=== PATIENT | male | born 1980 | race Caucasian/White ===

== ENCOUNTER 2016-10-20 08:22 | Emergency (ER) | payer SELFPAY ==
[~2016-10-20 08:22] MED LIST: CIPR500T89 PO; PERC5TAB6 PO
[2016-10-20] MEDS ORDERED: KETOROLAC 30 MG/ML VIAL (J1885) As Ordered ONE (09:18)
[2016-10-20 09:34] LABS: BASO # 0.2 K/mm3 (0.0-0.2); EOS # 0.2 K/mm3 (0.0-0.50); EOS % 1.3 % (0.0-3.0); LARGE UNSTAINED CELL # 0.2 K/mm3 (0.0-0.4); LARGE UNSTAINED CELL % 1.3 % (0.0-4.0); LYMPH # 2.2 K/mm3 (1.5-4.5); LYMPH % 16.4 % (24.0-44.0); MEAN CORPUSCULAR HEMOGLOBIN 32.6 pg (27.0-33.0); MEAN CORPUSCULAR HGB CONC 33.5 g/dl (32.0-36.5); MEAN CORPUSCULAR VOLUME 97.3 fl (80.0-96.0); MONO # 0.4 K/mm3 (0.0-0.8); MONO % 3.1 % (0.0-5.0); NEUTROPHILS # 9.2 K/mm3 (1.8-7.7); NEUTROPHILS % 75.9 % (36.0-66.0); PLATELET COUNT, AUTOMATED 273 k/mm3 (150-450); RED CELL DISTRIBUTION WIDTH 12.5 % (11.5-14.5); WHITE BLOOD COUNT 12.2 K/mm3 (4.0-10.0)
[2016-10-20 09:55] LABS: ANION GAP 7 MEQ/L (8-16); BLOOD UREA NITROGEN 11 MG/DL (7-18); CARBON DIOXIDE LEVEL 26 MEQ/L (21-32); CHLORIDE LEVEL 108 MEQ/L (98-107); CREATININE FOR GFR 0.65 MG/DL (0.70-1.30); GLOMERULAR FILTRATION RATE > 60.0 (>60); GLUCOSE, FASTING 92 MG/DL (70-105); POTASSIUM SERUM 3.9 MEQ/L (3.5-5.1); SODIUM LEVEL 141 MEQ/L (136-145)
--- NOTE | 2016-10-20 10:38 | REP ---
SCROTAL SONOGRAPHY: HISTORY: Right-sided chest tube. Prior hernia. COMPARISON STUDY: October 12, 2015 FINDINGS: High-resolution bilateral scrotal sonography demonstrates homogeneous testicular parenchyma bilaterally with normal intact Doppler flow to both testes. Doppler resistive indices are 0.52 on the right and 0.55 on the left. There is a 1.9 cm right-sided epididymal cyst again seen. No intratesticular mass lesion is seen on either side. There are a few scattered microcalcifications again seen in the testes. No intratesticular mass is seen. There is no evidence of hydrocele or hernia. Right testis measures 3.7 x 2.2 x 3.3 cm. Left testicular dimensions are 4.1 x 2.0 x 2.5 cm. IMPRESSION: 1.9 cm right-sided epididymal cyst again noted. Otherwise normal bilateral scrotal sonography. Normal Doppler flow to both testes. Signed by Yifan Butt MD 10/20/2016 02:32 P
--- NOTE | 2016-10-20 11:01 | EDDOCDS ---
Physician Documentation [facility] Name: Kameron Haro Age: 36 yrs Sex: Male : 1980 Arrival Date: 10/20/2016 Time: 08:22 Bed I4 / M4 Private MD: Disposition: 10/20/16 10:51 Discharged to Home/Self Care. Impression: Inguinal hernia - RIGHT, REDUCIBLE, Cyst of epididymis - RIGHT. - Condition is Stable. - Discharge Instructions: Inguinal Hernia, Adult. - Prescriptions for [place] 5- 325 mg Oral Tablet - take 1 tablet by ORAL route every 6 hours As needed MDD: 4 tabs; 15 tablet. - Medication Reconciliation, Local Pharmacy Hours form. - Follow up: Emergency Department; When: As needed; Reason: Worsening of conditions. Follow up: Jeremias Gallego MD; When: Call to arrange an appointment; Reason: Wound/Symptom Recheck, Recheck today's complaints, Continuance of care, To establish care. - Problem is new. - Symptoms are unchanged. Historical: - Allergies: no known allergies; - Home Meds: 1. none - PMHx: cysts on testicles; - PSHx: Appendectomy (2014); Inguinal hernia repair 1997; Hydrocele repair 1998; - Social history: Smoking status: Patient uses tobacco products, current every day smoker. No barriers to communication noted, The patient speaks fluent Maltese. - Family history: Not pertinent. - : The pt / caregiver states he / she is not on anticoagulants. Home medication list is obtained from the patient. - Exposure Risk Screening:: None identified. Vital Signs: 10/20 08:53 BP 141 / 87; Pulse 63; Resp 16; Temp 97.4(T); Pulse Ox 97% on R/A; Weight 68.04 kg / dwg 150 lbs; Height 5 ft. 9 in. (175.26 cm); Pain 9/10; 10:55 BP 127 / 70; Pulse 57; Resp 18; Temp 97.9; Pulse Ox 97% ; Pain 9/10; jam1 08:53 Body Mass Index 22.15 (68.04 kg, 175.26 cm) dwg MDM: 09:14 Financial registration complete. lg 09:14 IV Saline Lock ordered. dt4 09:14 ketorolac 30 mg IVP once ordered. dt4 09:16 CBC with Diff Ordered. EDMS 09:16 Basic Metabolic Profile Ordered. EDMS 09:16 CRP Ordered. EDMS 09:16 Urinalysis Ordered. EDMS 09:16 Urine Culture Ordered. EDMS 09:16 US Scrotal Ordered. EDMS 09:16 DUPLEX SCAN LIMITED (DOPPLER)+US Ordered. EDMS 09:19 ED course: PT STATES HX OF RIGHT INGUINAL HERNIA, THAT WAS REPAIRED IN 1998. STATES A dt4 COUPLE YEARS AGO, HAD HIS APPENDIX REMOVED AND WAS TOLD AT THAT TIME THAT HIS HERNIA HAD RECURRED AND WAS SCHEDULED TO HAVE THIS FIXED. STATES HE LOST HIS INSURANCE BEFORE THE SCHEDULED SURGERY AND DID NOT HAVE THE MONEY TO PAY OUT OF POCKET FOR THIS SURGERY SO HE DID NOT HAVE THIS REPAIRED AT THAT TIME. STATES SINCE THAT TIME, HAS HAD RIGHT INGUINAL AND RIGHT TESTICULAR PAIN CHRONICALLY BUT THIS HAS WORSENED OVER THE PAST FEW DAYS. STATES HE CAN BARELY PUT ON HIS SHOES IN THE MORNING DUE TO PAIN. . 09:33 Pelvis, limited US Ordered. EDMS 09:55 [facility] Payment Agreement was scanned into [employer] and attached to record. lg Administered Medications: 09:25 Drug: ketorolac 30 mg [ketorolac 30 mg/mL (1 mL) injection solution (1 mL)] Route: IVP; dsf Site: right forearm; Signatures: Dispatcher [employer] Momit Jn Arora, RN Tenisha Anderson, Jovani Reg Gilda Morris RN RN dsf Parul Lopez, YOHANNES PARod dt4 The chart was reviewed and I authenticate all verbal orders and agree with the evaluation and treatment provided.Corrections: (The following items were deleted from the chart) 09:33 09:16 US PELVIC NON-OB COMPLETE+US ordered. EDMS EDMS Attachments: 09:55 [facility] Payment Agreement lg MTDD
--- NOTE | 2016-10-20 11:01 | EDDOCDS ---
Nurse's Notes [facility] Name: Kameron Haro Age: 36 yrs Sex: Male : 1980 Arrival Date: 10/20/2016 Time: 08:22 Bed I4 / M4 Private MD: Diagnosis: Inguinal hernia-RIGHT, REDUCIBLE;Cyst of epididymis-RIGHT Presentation: 10/20 08:49 Presenting complaint: Patient states: Lower abdominal pain for 4-5 days, constant. [facility] Adult Sepsis Screening: The patient does not have new or worsening altered mentation. Patient's respiratory rate is less than 22. Systolic blood pressure is greater than 100. Patient has a qSOFA score of 0- Negative Sepsis Screen. Suicide/Homicide risk assessment- the patient denies having any suicidal and/or homicidal ideations and does not present with any other emotional, behavioral or mental health complaints. Status: Patient is not a medical service representative or dependent. Transition of care: patient was not received from another setting of care. 08:49 Acuity: JAN Level 3 dw 08:49 Method Of Arrival: Walkin/Carried/Asstd [facility] Triage Assessment: 08:53 General: Appears in no apparent distress. Pain: Pain currently is 9 out of 10 on a pain dwg scale. HIV screening NA for this visit Offered previously. 10:59 GI: Reports none. dsf Historical: - Allergies: no known allergies; - Home Meds: 1. none - PMHx: cysts on testicles; - PSHx: Appendectomy (2014); Inguinal hernia repair 1997; Hydrocele repair 1998; - Social history: Smoking status: Patient uses tobacco products, current every day smoker. No barriers to communication noted, The patient speaks fluent Bruneian. - Family history: Not pertinent. - : The pt / caregiver states he / she is not on anticoagulants. Home medication list is obtained from the patient. - Exposure Risk Screening:: None identified. Screenin:56 Screening information is obtained from the patient. Primary language is Bruneian. Fall jam1 risk: No risks identified. Assistance ADL's: requires no assistance with activities of daily living. Abuse/DV Screen: The patient / caregiver reports he/she is: not in a situation that causes fear, pain or injury. Nutritional screening: No deficits noted. Exposure Risk Screening: None identified. Advance Directives: Currently, there is no health care proxy. There is no active DNR order. There is no living will. There is no Power of [place]. Advance directive information has not previously been placed in an [facility] medical record. Further advance directive information is declined. home support is adequate. Assessment: 09:25 Adult Sepsis Screening: The patient does not have new or worsening altered mentation. dsf Patient's respiratory rate is less than 22. Systolic blood pressure is greater than 100. Patient has a qSOFA score of 0- Negative Sepsis Screen. General: Appears in no apparent distress, Behavior is appropriate for age, cooperative. Pain: Location: right groin Pain currently is 9 out of 10 on a pain scale. Quality of pain is described as stabbing, Pain began 1 year ago. Neurological: Level of Consciousness is awake, alert, Oriented to person, place, time. Cardiovascular: Capillary refill < 3 seconds Heart tones S1 S2 present. Respiratory: Airway is patent Respiratory effort is even, unlabored, Respiratory pattern is regular, symmetrical, Breath sounds are clear bilaterally. GI: Abdomen is flat, Bowel sounds present X 4 quads. Abd is soft and non tender X 4 quads. Derm: Skin is pink, warm & dry. 10:25 General: Appears in no apparent distress, comfortable, Behavior is appropriate for age, dsf cooperative, laughing . Pain: Location: right groin Pain currently is 8 out of 10 on a pain scale. Neurological: Level of Consciousness is awake, alert. Cardiovascular: No deficits noted. Respiratory: No deficits noted. Derm: Skin is pink, warm & dry. 10:58 Adult Sepsis Screening: The patient does not have new or worsening altered mentation. dsf Patient's respiratory rate is less than 22. Systolic blood pressure is greater than 100. Patient has a qSOFA score of 0- Negative Sepsis Screen. General: Appears in no apparent distress, comfortable, Behavior is appropriate for age, cooperative. Pain: Location: right groin Pain currently is 9 out of 10 on a pain scale. Neurological: Level of Consciousness is awake, alert, Oriented to person, place, time. Cardiovascular: No deficits noted. Respiratory: No deficits noted. Derm: Skin is pink, warm & dry. Vital Signs: 08:53 BP 141 / 87; Pulse 63; Resp 16; Temp 97.4(T); Pulse Ox 97% on R/A; Weight 68.04 kg; dwg Height 5 ft. 9 in. (175.26 cm); Pain 9/10; 10:55 BP 127 / 70; Pulse 57; Resp 18; Temp 97.9; Pulse Ox 97% ; Pain 9/10; jam1 08:53 Body Mass Index 22.15 (68.04 kg, 175.26 cm) [facility] Vitals: 08:53 Log In Time: October 20, 2016 at 08:20. [facility] ED Course: 08:25 Patient visited by Bryan Carcamo. mm15 08:25 Patient moved to Waiting mm15 08:48 Patient moved to Triage 1 dw 08:51 Triage Initiated dwg 09:02 Parul Lopez PA-C is PHCP. dt4 09:02 Jose Enrique Cowart MD is Attending Physician. dt4 09:02 Patient visited by Parul Lopez PA-C. dt4 09:16 Patient moved to I4 / M4 srm 09:20 Patient has correct armband on for positive identification. Placed in gown. Bed in low [facility] position. Call light in reach. Side rails up X 1. Adult w/ patient. Door closed. 09:25 Inserted saline lock: 20 gauge in right forearm The patient tolerated the procedure dsf well. 09:30 Patient moved to Ultrasound sm5 09:33 Patient visited by Gilda Topete RN. dsf 09:55 [facility] Payment Agreement was scanned into [employer] and attached to record. lg 10:10 Patient moved to I4 / M4 dsf 10:28 Patient visited by Gilda Topete RN. dsf 10:50 Jeremias Gallego MD is Referral Physician. dt4 10:57 Pt greeted and oriented to ED. Patient advised of names of staff involved in care, jam1 location of call hall, wait times and NPO status. Patient has correct armband on for positive identification. Placed in gown. Bed in low position. Call light in reach. Side rails up X 1. Adult w/ patient. 10:58 Discontinued lock intact, bleeding controlled, pressure dressing applied, No dsf redness/swelling at site. No procedures done that require assistance. 10:59 The patient / caregiver is instructed regarding the plan of care and ED course. dsf Administered Medications: 09:25 Drug: ketorolac 30 mg [ketorolac 30 mg/mL (1 mL) injection solution (1 mL)] Route: IVP; dsf Site: right forearm; Order Results: Lab Order: CBC with Diff; SPEC'M 10/20/16 09:25 Test: WHITE BLOOD COUNT; Value: 12.2; Range: 4.0-10.0; Abnormal: Above high normal; Units: K/mm3; Status: F Test: RED BLOOD COUNT; Value: 5.26; Range: 4.30-6.10; Units: M/mm3; Status: F Test: HEMOGLOBIN; Value: 17.2; Range: 14.0-18.0; Units: g/dl; Status: F Test: HEMATOCRIT; Value: 51.2; Range: 42.0-52.0; Units: %; Status: F Test: MEAN CORPUSCULAR VOLUME; Value: 97.3; Range: 80.0-96.0; Abnormal: Above high normal; Units: fl; Status: F Test: MEAN CORPUSCULAR HEMOGLOBIN; Value: 32.6; Range: 27.0-33.0; Units: pg; Status: F Test: MEAN CORPUSCULAR HGB CONC; Value: 33.5; Range: 32.0-36.5; Units: g/dl; Status: F Test: RED CELL DISTRIBUTION WIDTH; Value: 12.5; Range: 11.5-14.5; Units: %; Status: F Test: PLATELET COUNT, AUTOMATED; Value: 273; Range: 150-450; Units: k/mm3; Status: F Test: NEUTROPHILS %; Value: 75.9; Range: 36.0-66.0; Abnormal: Above high normal; Units: %; Status: F Test: LYMPH %; Value: 16.4; Range: 24.0-44.0; Abnormal: Below low normal; Units: %; Status: F Test: MONO %; Value: 3.1; Range: 0.0-5.0; Units: %; Status: F Test: EOS %; Value: 1.3; Range: 0.0-3.0; Units: %; Status: F Test: BASO %; Value: 2.0; Range: 0.0-1.0; Abnormal: Above high normal; Units: %; Status: F Test: LARGE UNSTAINED CELL %; Value: 1.3; Range: 0.0-4.0; Units: %; Status: F Test: NEUTROPHILS #; Value: 9.2; Range: 1.8-7.7; Abnormal: Above high normal; Units: K/mm3; Status: F Test: LYMPH #; Value: 2.2; Range: 1.5-4.5; Units: K/mm3; Status: F Test: MONO #; Value: 0.4; Range: 0.0-0.8; Units: K/mm3; Status: F Test: EOS #; Value: 0.2; Range: 0.0-0.50; Units: K/mm3; Status: F Test: BASO #; Value: 0.2; Range: 0.0-0.2; Units: K/mm3; Status: F Test: LARGE UNSTAINED CELL #; Value: 0.2; Range: 0.0-0.4; Units: K/mm3; Status: F Lab Order: Basic Metabolic Profile; [facility] 10/20/16 09:25 Test: GLUCOSE, FASTING; Value: 92; Range: 70-105; Units: MG/DL; Status: F Test: BLOOD UREA NITROGEN; Value: 11; Range: 7-18; Units: MG/DL; Status: F Test: CREATININE FOR GFR; Value: 0.65; Range: 0.70-1.30; Abnormal: Below low normal; Units: MG/DL; Status: F Test: GLOMERULAR FILTRATION RATE; Value: > 60.0; Range: >60; Status: F Test: SODIUM LEVEL; Value: 141; Range: 136-145; Units: MEQ/L; Status: F Test: POTASSIUM SERUM; Value: 3.9; Range: 3.5-5.1; Units: MEQ/L; Status: F Test: CHLORIDE LEVEL; Value: 108; Range: 98-107; Abnormal: Above high normal; Units: MEQ/L; Status: F Test: CARBON DIOXIDE LEVEL; Value: 26; Range: 21-32; Units: MEQ/L; Status: F Test: ANION GAP; Value: 7; Range: 8-16; Abnormal: Below low normal; Units: MEQ/L; Status: F Test: CALCIUM LEVEL; Value: 9.0; Range: 8.5-10.1; Units: MG/DL; Status: F Test Note: ; Units are mL/min/1.73 m2 Chronic Kidney Disease Staging per NKF: Stage I & II GFR >=60 Normal to Mildly Decreased Stage III GFR 30-59 Moderately Decreased Stage IV GFR 15-29 Severely Decreased Stage V GFR <15 Very Little GFR Left ESRD GFR <15 on BOOK PACKER Lab Order: CRP; SPEC'M 10/20/16 09:25 Test: C REACTIVE PROTEIN QUANTITATIV; Value: 2.19; Range: 0.00-0.30; Abnormal: Above high normal; Units: MG/DL; Status: F Lab Order: Urinalysis; SPEC'M 10/20/16 09:25 Test: APPEARANCE, URINE; Value: CLEAR; Range: CLEAR; Status: F Test: COLOR, URINE; Value: YELLOW; Range: YELLOW; Status: F Test: PH,URINE; Value: 6.0; Range: 5.0-9.0; Units: UNITS; Status: F Test: SPECIFIC GRAVITY URINE AUTO; Value: 1.015; Range: 1.002-1.035; Status: F Test: PROTEIN, URINE AUTO; Value: NEGATIVE; Range: NEGATIVE; Units: mg/dL; Status: F Test: GLUCOSE, URINE (UA) AUTO; Value: NEGATIVE; Range: NEGATIVE; Units: mg/dL; Status: F Test: KETONE, URINE AUTO; Value: NEGATIVE; Range: NEGATIVE; Units: mg/dL; Status: F Test: UROBILINOGEN, URINE AUTO; Value: 0.2; Range: 0.0-2.0; Units: mg/dL; Status: F Test: BILIRUBIN, URINE AUTO; Value: NEGATIVE; Range: NEGATIVE; Status: F Test: NITRITE, URINE AUTO; Value: NEGATIVE; Range: NEGATIVE; Status: F Test: LEUKOCYTE ESTERASE, URINE AUTO; Value: NEGATIVE; Range: NEGATIVE; Status: F Test: BLOOD, URINE BLOOD; Value: NEGATIVE; Range: NEGATIVE; Status: F Test: WBC, URINE AUTO; Value: 1; Range: 0-3; Units: /HPF; Status: F Test: RBC, URINE AUTO; Value: 1; Range: 0-3; Units: /HPF; Status: F Test: BACTERIA, URINE AUTO; Value: NEGATIVE; Range: NEGATIVE; Status: F Test: SQUAMOUS EPITHELIAL CELL UR AU; Value: 0; Range: 0-6; Units: /HPF; Status: F Test: MUCUS, URINE; Value: SMALL; Range: NEGATIVE; Status: F Test: HYALINE CAST, URINE AUTO; Value: 0; Range: 0-1; Units: /LPF; Status: F Outcome: 10:51 Discharge ordered by Provider. dt4 10:59 Discharge Assessment: Patient awake, alert and oriented x 3. No cognitive and/or dsf functional deficits noted. Patient verbalized understanding of disposition instructions. patient administered narcotics - no. The following High Risk Discharge criteria are identified: None. Discharged to home ambulatory. Condition: good. Discharge instructions given to patient, Instructed on discharge instructions, follow up and referral plans. Demonstrated understanding of instructions, Pt was receptive of discharge instructions/ teaching. Ultrasound Study completed. Property sent home with patient. 11:00 Patient left the ED. dsf Signatures: Jn Hewitt RN RN Suzette Schreiber RN RN srm Amberly Whiting, NAPPER TENDER NAPPER TENDER jam1 Tenisha Vogt, Reg Reg lg Demetra Rahman sm5 Gilda Topete RN RN dsf Bryan Carcamo mm15 Parul Lopez, PA-C PA-C dt4 MTDD
--- NOTE | 2016-10-20 22:06 | REP ---
Limited pelvic ultrasound to evaluate for possible right inguinal hernia 10/20/2016 Indication: Possible right inguinal hernia Comparison : Study read in conjunction with scrotal ultrasound also performed today and 10/20/2016 Technique: Sagittal and transverse images were obtained of the bilateral inguinal regions at rest and with Valsalva maneuver. Small right inguinal hernia was noted containing small amount of peritoneal fat only. This is seen in the right internal ring area. At rest the defect size is 2.3 mm, which increases to 4 mm with Valsalva. This hernia containing peritoneal fat is reducible. The left inguinal region was unremarkable without inguinal hernia noted at rest or upon Valsalva maneuver. Impression: small right inguinal hernia in the internal ring area containing small amount of peritoneal fat only. The hernia defect is 2.3 mm at rest and increases to 4 mm with Valsalva. Herniated peritoneal fat is reducible Signed by Aide Bagley MD 10/20/2016 09:57 P
--- NOTE | 2016-10-22 12:01 | EDDOCDS ---
Physician Documentation [facility] Name: Kameron Haro Age: 36 yrs Sex: Male : 1980 Arrival Date: 10/20/2016 Time: 08:22 Bed I4 / M4 Private MD: Disposition: 10/20/16 10:51 Discharged to Home/Self Care. Impression: Inguinal hernia - RIGHT, REDUCIBLE, Cyst of epididymis - RIGHT. - Condition is Stable. - Discharge Instructions: Inguinal Hernia, Adult. - Prescriptions for [place] 5- 325 mg Oral Tablet - take 1 tablet by ORAL route every 6 hours As needed MDD: 4 tabs; 15 tablet. - Medication Reconciliation, Local Pharmacy Hours form. - Follow up: Emergency Department; When: As needed; Reason: Worsening of conditions. Follow up: Jeremias Gallego MD; When: Call to arrange an appointment; Reason: Wound/Symptom Recheck, Recheck today's complaints, Continuance of care, To establish care. - Problem is new. - Symptoms are unchanged. Historical: - Allergies: no known allergies; - Home Meds: 1. none - PMHx: cysts on testicles; - PSHx: Appendectomy (2014); Inguinal hernia repair 1997; Hydrocele repair 1998; - Social history: Smoking status: Patient uses tobacco products, current every day smoker. No barriers to communication noted, The patient speaks fluent Slovenian. - Family history: Not pertinent. - : The pt / caregiver states he / she is not on anticoagulants. Home medication list is obtained from the patient. - Exposure Risk Screening:: None identified. Vital Signs: 10/20 08:53 BP 141 / 87; Pulse 63; Resp 16; Temp 97.4(T); Pulse Ox 97% on R/A; Weight 68.04 kg / dwg 150 lbs; Height 5 ft. 9 in. (175.26 cm); Pain 9/10; 10:55 BP 127 / 70; Pulse 57; Resp 18; Temp 97.9; Pulse Ox 97% ; Pain 9/10; jam1 08:53 Body Mass Index 22.15 (68.04 kg, 175.26 cm) dwg MDM: 09:14 Financial registration complete. lg 09:14 IV Saline Lock ordered. dt4 09:14 ketorolac 30 mg IVP once ordered. dt4 09:16 CBC with Diff Ordered. EDMS 09:16 Basic Metabolic Profile Ordered. EDMS 09:16 CRP Ordered. EDMS 09:16 Urinalysis Ordered. EDMS 09:16 Urine Culture Ordered. EDMS 09:16 US Scrotal Ordered. EDMS 09:16 DUPLEX SCAN LIMITED (DOPPLER)+US Ordered. EDMS 09:19 ED course: PT STATES HX OF RIGHT INGUINAL HERNIA, THAT WAS REPAIRED IN 1998. STATES A dt4 COUPLE YEARS AGO, HAD HIS APPENDIX REMOVED AND WAS TOLD AT THAT TIME THAT HIS HERNIA HAD RECURRED AND WAS SCHEDULED TO HAVE THIS FIXED. STATES HE LOST HIS INSURANCE BEFORE THE SCHEDULED SURGERY AND DID NOT HAVE THE MONEY TO PAY OUT OF POCKET FOR THIS SURGERY SO HE DID NOT HAVE THIS REPAIRED AT THAT TIME. STATES SINCE THAT TIME, HAS HAD RIGHT INGUINAL AND RIGHT TESTICULAR PAIN CHRONICALLY BUT THIS HAS WORSENED OVER THE PAST FEW DAYS. STATES HE CAN BARELY PUT ON HIS SHOES IN THE MORNING DUE TO PAIN. . 09:33 Pelvis, limited US Ordered. EDMS 09:55 [facility] Payment Agreement was scanned into [employer] and attached to record. lg 12:52 T-Sheet-- Draft Copy was scanned into [employer] and attached to record. gb 12:52 Radiology Report was scanned into [employer] and attached to record. gb Administered Medications: 09:25 Drug: ketorolac 30 mg [ketorolac 30 mg/mL (1 mL) injection solution (1 mL)] Route: IVP; dsf Site: right forearm; Signatures: Dispatcher [employer] Jn Arora RN RN [facility] Angelica Petit, Reg Reg gb Tenisha Vogt, Reg Reg Gilda Morris RN RN dsf Parul Lopez, YOHANNES PARod dt4 The chart was reviewed and I authenticate all verbal orders and agree with the evaluation and treatment provided.Corrections: (The following items were deleted from the chart) 09:33 09:16 US PELVIC NON-OB COMPLETE+US ordered. EDMS EDMS Attachments: 09:55 [facility] Payment Agreement lg 12:52 T-Sheet-- Draft Copy gb Chart Complete MTDD
--- NOTE | 2016-10-22 12:01 | EDDOCDS ---
Nurse's Notes [facility] Name: Kameron Haro Age: 36 yrs Sex: Male : 1980 Arrival Date: 10/20/2016 Time: 08:22 Bed I4 / M4 Private MD: Diagnosis: Inguinal hernia-RIGHT, REDUCIBLE;Cyst of epididymis-RIGHT Presentation: 10/20 08:49 Presenting complaint: Patient states: Lower abdominal pain for 4-5 days, constant. [facility] Adult Sepsis Screening: The patient does not have new or worsening altered mentation. Patient's respiratory rate is less than 22. Systolic blood pressure is greater than 100. Patient has a qSOFA score of 0- Negative Sepsis Screen. Suicide/Homicide risk assessment- the patient denies having any suicidal and/or homicidal ideations and does not present with any other emotional, behavioral or mental health complaints. Status: Patient is not a furniture servicer or dependent. Transition of care: patient was not received from another setting of care. 08:49 Acuity: JAN Level 3 dw 08:49 Method Of Arrival: Walkin/Carried/Asstd [facility] Triage Assessment: 08:53 General: Appears in no apparent distress. Pain: Pain currently is 9 out of 10 on a pain dwg scale. HIV screening NA for this visit Offered previously. 10:59 GI: Reports none. dsf Historical: - Allergies: no known allergies; - Home Meds: 1. none - PMHx: cysts on testicles; - PSHx: Appendectomy (2014); Inguinal hernia repair 1997; Hydrocele repair 1998; - Social history: Smoking status: Patient uses tobacco products, current every day smoker. No barriers to communication noted, The patient speaks fluent Tajik. - Family history: Not pertinent. - : The pt / caregiver states he / she is not on anticoagulants. Home medication list is obtained from the patient. - Exposure Risk Screening:: None identified. Screenin:56 Screening information is obtained from the patient. Primary language is Tajik. Fall jam1 risk: No risks identified. Assistance ADL's: requires no assistance with activities of daily living. Abuse/DV Screen: The patient / caregiver reports he/she is: not in a situation that causes fear, pain or injury. Nutritional screening: No deficits noted. Exposure Risk Screening: None identified. Advance Directives: Currently, there is no health care proxy. There is no active DNR order. There is no living will. There is no Power of Color Making Supervisor. Advance directive information has not previously been placed in an [facility] medical record. Further advance directive information is declined. home support is adequate. Assessment: 09:25 Adult Sepsis Screening: The patient does not have new or worsening altered mentation. dsf Patient's respiratory rate is less than 22. Systolic blood pressure is greater than 100. Patient has a qSOFA score of 0- Negative Sepsis Screen. General: Appears in no apparent distress, Behavior is appropriate for age, cooperative. Pain: Location: right groin Pain currently is 9 out of 10 on a pain scale. Quality of pain is described as stabbing, Pain began 1 year ago. Neurological: Level of Consciousness is awake, alert, Oriented to person, place, time. Cardiovascular: Capillary refill < 3 seconds Heart tones S1 S2 present. Respiratory: Airway is patent Respiratory effort is even, unlabored, Respiratory pattern is regular, symmetrical, Breath sounds are clear bilaterally. GI: Abdomen is flat, Bowel sounds present X 4 quads. Abd is soft and non tender X 4 quads. Derm: Skin is pink, warm & dry. 10:25 General: Appears in no apparent distress, comfortable, Behavior is appropriate for age, dsf cooperative, laughing . Pain: Location: right groin Pain currently is 8 out of 10 on a pain scale. Neurological: Level of Consciousness is awake, alert. Cardiovascular: No deficits noted. Respiratory: No deficits noted. Derm: Skin is pink, warm & dry. 10:58 Adult Sepsis Screening: The patient does not have new or worsening altered mentation. dsf Patient's respiratory rate is less than 22. Systolic blood pressure is greater than 100. Patient has a qSOFA score of 0- Negative Sepsis Screen. General: Appears in no apparent distress, comfortable, Behavior is appropriate for age, cooperative. Pain: Location: right groin Pain currently is 9 out of 10 on a pain scale. Neurological: Level of Consciousness is awake, alert, Oriented to person, place, time. Cardiovascular: No deficits noted. Respiratory: No deficits noted. Derm: Skin is pink, warm & dry. Vital Signs: 08:53 BP 141 / 87; Pulse 63; Resp 16; Temp 97.4(T); Pulse Ox 97% on R/A; Weight 68.04 kg; dwg Height 5 ft. 9 in. (175.26 cm); Pain 9/10; 10:55 BP 127 / 70; Pulse 57; Resp 18; Temp 97.9; Pulse Ox 97% ; Pain 9/10; jam1 08:53 Body Mass Index 22.15 (68.04 kg, 175.26 cm) [facility] Vitals: 08:53 Log In Time: October 20, 2016 at 08:20. [facility] ED Course: 08:25 Patient visited by Bryan Carcamo. mm15 08:25 Patient moved to Waiting mm15 08:48 Patient moved to Triage 1 dwg 08:51 Triage Initiated dwg 09:02 Parul Lopez PA-C is PHCP. dt4 09:02 Jose Enrique Cowart MD is Attending Physician. dt4 09:02 Patient visited by Parul Lopez PA-C. dt4 09:16 Patient moved to I4 / M4 srm 09:20 Patient has correct armband on for positive identification. Placed in gown. Bed in [facility] position. Call light in reach. Side rails up X 1. Adult w/ patient. Door closed. 09:25 Inserted saline lock: 20 gauge in right forearm The patient tolerated the procedure dsf well. 09:30 Patient moved to Ultrasound sm5 09:33 Patient visited by Gilda Toptee RN. dsf 09:55 [facility] Payment Agreement was scanned into [employer] and attached to record. lg 10:10 Patient moved to I4 / M4 dsf 10:28 Patient visited by Gilda Topete RN. dsf 10:50 Jeremias Gallego MD is Referral Physician. dt4 10:57 Pt greeted and oriented to ED. Patient advised of names of staff involved in care, jam1 location of call hall, wait times and NPO status. Patient has correct armband on for positive identification. Placed in gown. Bed in low position. Call light in reach. Side rails up X 1. Adult w/ patient. 10:58 Discontinued lock intact, bleeding controlled, pressure dressing applied, No dsf redness/swelling at site. No procedures done that require assistance. 10:59 The patient / caregiver is instructed regarding the plan of care and ED course. dsf 11:01 US Scrotal Returned. EDMS 12:52 T-Sheet-- Draft Copy was scanned into [employer] and attached to record. gb 12:52 Radiology Report was scanned into [employer] and attached to record. gb 22:13 Pelvis, limited US Returned. EDMS Administered Medications: 09:25 Drug: ketorolac 30 mg [ketorolac 30 mg/mL (1 mL) injection solution (1 mL)] Route: IVP; dsf Site: right forearm; Order Results: Lab Order: CBC with Diff; SPEC'M 10/20/16 09:25 Test: WHITE BLOOD COUNT; Value: 12.2; Range: 4.0-10.0; Abnormal: Above high normal; Units: K/mm3; Status: F Test: RED BLOOD COUNT; Value: 5.26; Range: 4.30-6.10; Units: M/mm3; Status: F Test: HEMOGLOBIN; Value: 17.2; Range: 14.0-18.0; Units: g/dl; Status: F Test: HEMATOCRIT; Value: 51.2; Range: 42.0-52.0; Units: %; Status: F Test: MEAN CORPUSCULAR VOLUME; Value: 97.3; Range: 80.0-96.0; Abnormal: Above high normal; Units: fl; Status: F Test: MEAN CORPUSCULAR HEMOGLOBIN; Value: 32.6; Range: 27.0-33.0; Units: pg; Status: F Test: MEAN CORPUSCULAR HGB CONC; Value: 33.5; Range: 32.0-36.5; Units: g/dl; Status: F Test: RED CELL DISTRIBUTION WIDTH; Value: 12.5; Range: 11.5-14.5; Units: %; Status: F Test: PLATELET COUNT, AUTOMATED; Value: 273; Range: 150-450; Units: k/mm3; Status: F Test: NEUTROPHILS %; Value: 75.9; Range: 36.0-66.0; Abnormal: Above high normal; Units: %; Status: F Test: LYMPH %; Value: 16.4; Range: 24.0-44.0; Abnormal: Below low normal; Units: %; Status: F Test: MONO %; Value: 3.1; Range: 0.0-5.0; Units: %; Status: F Test: EOS %; Value: 1.3; Range: 0.0-3.0; Units: %; Status: F Test: BASO %; Value: 2.0; Range: 0.0-1.0; Abnormal: Above high normal; Units: %; Status: F Test: LARGE UNSTAINED CELL %; Value: 1.3; Range: 0.0-4.0; Units: %; Status: F Test: NEUTROPHILS #; Value: 9.2; Range: 1.8-7.7; Abnormal: Above high normal; Units: K/mm3; Status: F Test: LYMPH #; Value: 2.2; Range: 1.5-4.5; Units: K/mm3; Status: F Test: MONO #; Value: 0.4; Range: 0.0-0.8; Units: K/mm3; Status: F Test: EOS #; Value: 0.2; Range: 0.0-0.50; Units: K/mm3; Status: F Test: BASO #; Value: 0.2; Range: 0.0-0.2; Units: K/mm3; Status: F Test: LARGE UNSTAINED CELL #; Value: 0.2; Range: 0.0-0.4; Units: K/mm3; Status: F Lab Order: Basic Metabolic Profile; SPEC'M 10/20/16 09:25 Test: GLUCOSE, FASTING; Value: 92; Range: 70-105; Units: MG/DL; Status: F Test: BLOOD UREA NITROGEN; Value: 11; Range: 7-18; Units: MG/DL; Status: F Test: CREATININE FOR GFR; Value: 0.65; Range: 0.70-1.30; Abnormal: Below low normal; Units: MG/DL; Status: F Test: GLOMERULAR FILTRATION RATE; Value: > 60.0; Range: >60; Status: F Test: SODIUM LEVEL; Value: 141; Range: 136-145; Units: MEQ/L; Status: F Test: POTASSIUM SERUM; Value: 3.9; Range: 3.5-5.1; Units: MEQ/L; Status: F Test: CHLORIDE LEVEL; Value: 108; Range: 98-107; Abnormal: Above high normal; Units: MEQ/L; Status: F Test: CARBON DIOXIDE LEVEL; Value: 26; Range: 21-32; Units: MEQ/L; Status: F Test: ANION GAP; Value: 7; Range: 8-16; Abnormal: Below low normal; Units: MEQ/L; Status: F Test: CALCIUM LEVEL; Value: 9.0; Range: 8.5-10.1; Units: MG/DL; Status: F Test Note: ; Units are mL/min/1.73 m2 Chronic Kidney Disease Staging per NKF: Stage I & II GFR >=60 Normal to Mildly Decreased Stage III GFR 30-59 Moderately Decreased Stage IV GFR 15-29 Severely Decreased Stage V GFR <15 Very Little GFR Left ESRD GFR <15 on WATER RESOURCES TECHNICAL OFFICER Lab Order: CRP; SPEC'M 10/20/16 09:25 Test: C REACTIVE PROTEIN QUANTITATIV; Value: 2.19; Range: 0.00-0.30; Abnormal: Above high normal; Units: MG/DL; Status: F Lab Order: Urinalysis; SPEC'M 10/20/16 09:25 Test: APPEARANCE, URINE; Value: CLEAR; Range: CLEAR; Status: F Test: COLOR, URINE; Value: YELLOW; Range: YELLOW; Status: F Test: PH,URINE; Value: 6.0; Range: 5.0-9.0; Units: UNITS; Status: F Test: SPECIFIC GRAVITY URINE AUTO; Value: 1.015; Range: 1.002-1.035; Status: F Test: PROTEIN, URINE AUTO; Value: NEGATIVE; Range: NEGATIVE; Units: mg/dL; Status: F Test: GLUCOSE, URINE (UA) AUTO; Value: NEGATIVE; Range: NEGATIVE; Units: mg/dL; Status: F Test: KETONE, URINE AUTO; Value: NEGATIVE; Range: NEGATIVE; Units: mg/dL; Status: F Test: UROBILINOGEN, URINE AUTO; Value: 0.2; Range: 0.0-2.0; Units: mg/dL; Status: F Test: BILIRUBIN, URINE AUTO; Value: NEGATIVE; Range: NEGATIVE; Status: F Test: NITRITE, URINE AUTO; Value: NEGATIVE; Range: NEGATIVE; Status: F Test: LEUKOCYTE ESTERASE, URINE AUTO; Value: NEGATIVE; Range: NEGATIVE; Status: F Test: BLOOD, URINE BLOOD; Value: NEGATIVE; Range: NEGATIVE; Status: F Test: WBC, URINE AUTO; Value: 1; Range: 0-3; Units: /HPF; Status: F Test: RBC, URINE AUTO; Value: 1; Range: 0-3; Units: /HPF; Status: F Test: BACTERIA, URINE AUTO; Value: NEGATIVE; Range: NEGATIVE; Status: F Test: SQUAMOUS EPITHELIAL CELL UR AU; Value: 0; Range: 0-6; Units: /HPF; Status: F Test: MUCUS, URINE; Value: SMALL; Range: NEGATIVE; Status: F Test: HYALINE CAST, URINE AUTO; Value: 0; Range: 0-1; Units: /LPF; Status: F Lab Order: Urine Culture; SPEC'M 10/20/16 09:25 Test: URINE CULTURE; Value: URINE CULTURE RESULT NO GROWTH; Status: F Radiology Order: US Scrotal Test: US Scrotal REASON FOR EXAMINATION: RIGHT TESTICULAR PAIN, PRIOR HERNIA; SCROTAL SONOGRAPHY:; ; HISTORY: Right-sided chest tube. Prior hernia.; ; COMPARISON STUDY: October 12, 2015; ; FINDINGS: High-resolution bilateral scrotal sonography demonstrates homogeneous; testicular parenchyma bilaterally with normal intact Doppler flow to both testes.; Doppler resistive indices are 0.52 on the right and 0.55 on the left. There is a; 1.9 cm right-sided epididymal cyst again seen. No intratesticular mass lesion is; seen on either side. There are a few scattered microcalcifications again seen in; the testes. No intratesticular mass is seen. There is no evidence of hydrocele; or hernia. Right testis measures 3.7 x 2.2 x 3.3 cm. Left testicular dimensions; are 4.1 x 2.0 x 2.5 cm.; ; IMPRESSION: 1.9 cm right-sided epididymal cyst again noted. Otherwise normal; bilateral scrotal sonography. Normal Doppler flow to both testes.; ; ; Signed by; Yifan Butt MD 10/20/2016 02:32 P; Radiology Order: Pelvis, limited US Test: Pelvis, limited US REASON FOR EXAMINATION: RIGHT INGUINAL HERNIA?; Limited pelvic ultrasound to evaluate for possible right inguinal hernia; 10/20/2016; ; Indication: Possible right inguinal hernia; ; Comparison : Study read in conjunction with scrotal ultrasound also performed; today and 10/20/2016; ; Technique: Sagittal and transverse images were obtained of the bilateral; inguinal regions at rest and with Valsalva maneuver.; ; Small right inguinal hernia was noted containing small amount of peritoneal fat; only. This is seen in the right internal ring area. At rest the defect size is; 2.3 mm, which increases to 4 mm with Valsalva. This hernia containing peritoneal; fat is reducible.; ; The left inguinal region was unremarkable without inguinal hernia noted at rest; or upon Valsalva maneuver.; ; Impression: small right inguinal hernia in the internal ring area containing; small amount of peritoneal fat only. The hernia defect is 2.3 mm at rest and; increases to 4 mm with Valsalva. Herniated peritoneal fat is reducible; ; ; ; ; ; ; Signed by; Aide Bagley MD 10/20/2016 09:57 P; Outcome: 10:51 Discharge ordered by Provider. dt4 10:59 Discharge Assessment: Patient awake, alert and oriented x 3. No cognitive and/or dsf functional deficits noted. Patient verbalized understanding of disposition instructions. patient administered narcotics - no. The following High Risk Discharge criteria are identified: None. Discharged to home ambulatory. Condition: good. Discharge instructions given to patient, Instructed on discharge instructions, follow up and referral plans. Demonstrated understanding of instructions, Pt was receptive of discharge instructions/ teaching. Ultrasound Study completed. Property sent home with patient. 11:00 Patient left the ED. dsf Signatures: Dispatcher [employer] EDJn Dc, Suzette Paul RN, RN RN Amberly Bullock, PRINTS AND DRAWINGS CURATOR PRINTS AND DRAWINGS CURATOR jam1 Angelica Petit, Reg Reg gb Tenisha Vogt, Reg Reg lg Demetra Rahman sm5 Gilda Topete RN RN dsf Bryan Carcamo mm15 Parul Lopez PA-C PA-Silas dt4 Chart Complete MTDD
--- NOTE | 2016-10-22 12:01 | EDDOCDS ---
Physician Documentation [facility] Name: Kameron Haro Age: 36 yrs Sex: Male : 1980 Arrival Date: 10/20/2016 Time: 08:22 Bed I4 / M4 Private MD: Disposition: 10/20/16 10:51 Discharged to Home/Self Care. Impression: Inguinal hernia - RIGHT, REDUCIBLE, Cyst of epididymis - RIGHT. - Condition is Stable. - Discharge Instructions: Inguinal Hernia, Adult. - Prescriptions for [place] 5- 325 mg Oral Tablet - take 1 tablet by ORAL route every 6 hours As needed MDD: 4 tabs; 15 tablet. - Medication Reconciliation, Local Pharmacy Hours form. - Follow up: Emergency Department; When: As needed; Reason: Worsening of conditions. Follow up: Jeremias Gallego MD; When: Call to arrange an appointment; Reason: Wound/Symptom Recheck, Recheck today's complaints, Continuance of care, To establish care. - Problem is new. - Symptoms are unchanged. Historical: - Allergies: no known allergies; - Home Meds: 1. none - PMHx: cysts on testicles; - PSHx: Appendectomy (2014); Inguinal hernia repair 1997; Hydrocele repair 1998; - Social history: Smoking status: Patient uses tobacco products, current every day smoker. No barriers to communication noted, The patient speaks fluent Nepali. - Family history: Not pertinent. - : The pt / caregiver states he / she is not on anticoagulants. Home medication list is obtained from the patient. - Exposure Risk Screening:: None identified. Vital Signs: 10/20 08:53 BP 141 / 87; Pulse 63; Resp 16; Temp 97.4(T); Pulse Ox 97% on R/A; Weight 68.04 kg / dwg 150 lbs; Height 5 ft. 9 in. (175.26 cm); Pain 9/10; 10:55 BP 127 / 70; Pulse 57; Resp 18; Temp 97.9; Pulse Ox 97% ; Pain 9/10; jam1 08:53 Body Mass Index 22.15 (68.04 kg, 175.26 cm) dwg MDM: 09:14 Financial registration complete. lg 09:14 IV Saline Lock ordered. dt4 09:14 ketorolac 30 mg IVP once ordered. dt4 09:16 CBC with Diff Ordered. EDMS 09:16 Basic Metabolic Profile Ordered. EDMS 09:16 CRP Ordered. EDMS 09:16 Urinalysis Ordered. EDMS 09:16 Urine Culture Ordered. EDMS 09:16 US Scrotal Ordered. EDMS 09:16 DUPLEX SCAN LIMITED (DOPPLER)+US Ordered. EDMS 09:19 ED course: PT STATES HX OF RIGHT INGUINAL HERNIA, THAT WAS REPAIRED IN 1998. STATES A dt4 COUPLE YEARS AGO, HAD HIS APPENDIX REMOVED AND WAS TOLD AT THAT TIME THAT HIS HERNIA HAD RECURRED AND WAS SCHEDULED TO HAVE THIS FIXED. STATES HE LOST HIS INSURANCE BEFORE THE SCHEDULED SURGERY AND DID NOT HAVE THE MONEY TO PAY OUT OF POCKET FOR THIS SURGERY SO HE DID NOT HAVE THIS REPAIRED AT THAT TIME. STATES SINCE THAT TIME, HAS HAD RIGHT INGUINAL AND RIGHT TESTICULAR PAIN CHRONICALLY BUT THIS HAS WORSENED OVER THE PAST FEW DAYS. STATES HE CAN BARELY PUT ON HIS SHOES IN THE MORNING DUE TO PAIN. . 09:33 Pelvis, limited US Ordered. EDMS 09:55 REPLACED BY [facility] Payment Agreement was scanned into [employer] and attached to record. lg 12:52 T-Sheet-- Draft Copy was scanned into [employer] and attached to record. gb 12:52 Radiology Report was scanned into [employer] and attached to record. gb Administered Medications: 09:25 Drug: ketorolac 30 mg [ketorolac 30 mg/mL (1 mL) injection solution (1 mL)] Route: IVP; dsf Site: right forearm; Signatures: Dispatcher [employer] Jn Arora RN RN [facility] Angelica Petit, Reg Reg gb Tenisha Vogt, Reg Reg Gilda Morris RN RN dsf Parul Lopez, YOHANNES PARod dt4 The chart was reviewed and I authenticate all verbal orders and agree with the evaluation and treatment provided.Corrections: (The following items were deleted from the chart) 09:33 09:16 US PELVIC NON-OB COMPLETE+US ordered. EDMS EDMS Attachments: 09:55 REPLACED BY [facility] Payment Agreement lg 12:52 T-Sheet-- Draft Copy gb Chart Complete MTDD
== END 2016-10-20 11:00 | disposition home or self-care (01) ==
LOC: M ED 08:22
DX: K40.90 Unilateral inguinal hernia, without obstruction or gangrene, not specified as recurrent (principal); N44.2 Benign cyst of testis; F17.210 Nicotine dependence, cigarettes, uncomplicated
CPT/HCPCS: 36415; 76857; 76870; 80048; 81001; 85025; 86140; 87086; 93976; 96374; 99284; J1885